=== PATIENT | female | born 1960 | race Caucasian/White ===

== ENCOUNTER 2018-04-04 12:40 | Emergency (ER) | payer MEDICARE ==
[~2018-04-04] VITALS: Ht 157.5 cm; Wt 59.0 kg
[2018-04-04] MEDS ORDERED: LISINOPRIL10 MG PO (12:56)
[2018-04-04] MEDS ORDERED: LOPRESSOR25 PO (12:56)
[2018-04-04] MEDS ORDERED: SPIRIVA INH (12:57)
[2018-04-04] MEDS ORDERED: WELLBUTRIN SR150 MG PO (12:57)
[2018-04-04] MEDS ORDERED: PROZAC10 MG PO (12:57)
[2018-04-04] MEDS ORDERED: PROAIR RESPICL90 MCG INH (12:58)
[2018-04-04] MEDS ORDERED: CLONAZEPAM 1 MG1 M1 PO (12:58)
[2018-04-04] MEDS ORDERED: VITAMIN D5000 UNIT PO (12:59)
[2018-04-04] MEDS ORDERED: LUNESTA3 MG PO (12:59)
[2018-04-04 14:54] LABS: BE 2.8 mmol/L (-2 to +3); HCO3 27.2 mmol/L (22.0-26.0); PCO2 41.4 mmHg (35.0-45.0); PO2 73.4 mmHg (75.0-100.0); pH 7.436 (7.340-7.450)
[2018-04-04 15:36] LABS: ABSOLUTE EOSINOPHILS 0.1 thou/uL (0.0-0.7); ABSOLUTE LYMPHOCYTES 1.1 thou/uL (0.8-5.3); ABSOLUTE MONOCYTES 0.3 thou/uL (0.0-1.2); ABSOLUTE NEUTROPHILS 3.8 thou/uL (1.6-8.1); BASOPHILS 0.7 %; EOSINOPHILS 2.4 %; HEMATOCRIT 40.4 % (37.0-47.0); HEMOGLOBIN 13.4 gm/dL (12.0-15.0); LYMPHOCYTES 20.5 %; MCH 28.4 pg (26.0-34.0); MCHC 33.1 g/dL (28.0-37.0); MCV 85.9 fL (80.0-100.0); MONOCYTES 5.3 %; MPV 7.5 fl. (7.2-11.1); NUCLEATED RBCS 0 /100WBC; PLATELET COUNT* 251 thou/uL (150-400); POLYS 71.1 %; RBC 4.71 mil/uL (4.20-5.00); WBC 5.3 thou/uL (4.0-11.0)
--- NOTE | 2018-04-04 15:45 | EKG ---
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
[2018-04-04 15:46] LABS: ANION GAP 9 mmol/L (7-16); BUN 11 mg/dL (7-18); CALCIUM 8.8 mg/dL (8.5-10.1); CHLORIDE 100 mmol/L (98-107); CO2 29 mmol/L (21-32); CREATININE 0.8 mg/dL (0.6-1.3); GLUCOSE 112 mg/dL (70-99); POTASSIUM 3.9 mmol/L (3.5-5.1); SODIUM 138 mmol/L (136-145)
[2018-04-04 15:58] LABS: ALBUMIN 3.4 g/dL (3.4-5.0); ALKALINE PHOSPHATASE 105 U/L (46-116); NT-PRO BRAIN NAT PEPTIDE 95 pg/mL (<300); SGOT 16 U/L (15-37); SGPT 18 U/L (30-65); TOTAL BILIRUBIN 0.4 mg/dL (<0.1-1.0); TOTAL PROTEIN 7.2 g/dL (6.4-8.2); TROPONIN-I LEVEL <0.06 ng/mL (<0.06)
[2018-04-04] MEDS ORDERED: ZPAK PO (15:59)
[2018-04-04] MEDS ORDERED: MEDROLDOSEPACK PO (15:59)
[2018-04-04] MEDS ORDERED: BREO ELLIPTA 11 EACH INH (16:16)
[2018-04-04] MEDS ORDERED: TRAMADOL 50 MG50 MG PO (16:17)
[2018-04-04] MEDS ORDERED: VENTOLIN HFA 1818 GM INH (16:19)
[2018-04-04 16:45] VITALS: BP 167/80
== END 2018-04-04 16:47 | disposition home or self-care (01) ==
LOC: M.ERS 12:40
PROVIDERS: Nurse Practitioner Family
DX: J44.1 Chronic obstructive pulmonary disease with (acute) exacerbation (principal); M94.0 Chondrocostal junction syndrome [Tietze]; I11.0 Hypertensive heart disease with heart failure; I50.9 Heart failure, unspecified; E11.9 Type 2 diabetes mellitus without complications; F31.9 Bipolar disorder, unspecified; F41.9 Anxiety disorder, unspecified; Z90.710 Acquired absence of both cervix and uterus; F17.210 Nicotine dependence, cigarettes, uncomplicated; Z88.5 Allergy status to narcotic agent